=== PATIENT | male | born 1945 | race Caucasian/White ===

== ENCOUNTER 2019-10-10 18:10 | Emergency (ER) | payer MEDICARE ==
[2019-10-10] MEDS ORDERED: Bupivacaine PF 0.5% 30 ML VIAL ONE (18:13)
[2019-10-10] MEDS ORDERED: Adacel (T-DAP) 0.5 ML SYRINGE ONE (18:40)
[2019-10-10] MEDS ORDERED: CEFAZOLIN 1 GM VIAL ONE (18:55)
[2019-10-10] MEDS ORDERED: Sodium Chloride 0.9% 100 ML ONE (18:56)
[2019-10-10] MEDS ORDERED: Lorazepam 2 MG/ML VIAL ONE (19:32)
--- NOTE | 2019-10-10 21:02 | RAD ---
THREE VIEWS OF THE RIGHT INDEX FINGER: 10/10/19 COMPARISON: None. HISTORY: Trauma, pain. FINDINGS: There has been partial amputation of the index finger with absence of the distal phalanx and comminut ed fracture of the distal aspect of the second middle phalanx with bone fragmentation/fracture deform ities. There is no extension into the proximal interphalangeal joint. No evidence for dislocation. IMPRESSION: Partial amputation of the index finger at the level of the distal portion of the second middle phalan x. POS: [facility]
== END 2019-10-10 20:09 | disposition short-term general hospital (02) ==
LOC: MADERS 18:10
DX: S68.120A Partial traumatic metacarpophalangeal amputation of right index finger, initial encounter (principal); M19.90 Unspecified osteoarthritis, unspecified site; Z79.899 Other long term (current) drug therapy; Z23 Encounter for immunization; W26.9XXA Contact with unspecified sharp object(s), initial encounter
CPT/HCPCS: 90471; 90715; 96365; 96372; 96375; J0690; J2060; J3490; S0020